=== PATIENT | female | born 1995 | race Hispanic/Latino ===

== ENCOUNTER 2017-10-14 19:04 | Emergency (ER) | payer OTHER ==
[2017-10-14] MEDS ORDERED: methylPREDNISolone Sod Succ/PF 125 MG/2 ML VIAL ONE ×2 (19:47→20:06)
[2017-10-14] MEDS ORDERED: diphenhydrAMINE 50 MG/ML VIAL ONE ×2 (19:47→20:08)
[2017-10-14] MEDS ORDERED: Famotidine 20 MG TAB ONE ×2 (19:47→20:06)
[2017-10-14] MEDS ORDERED: Water For Inject, Bacteriostat 0 ML ONE (19:48)
[2017-10-14] MEDS ORDERED: Water For Inject, Bacteriostat 30 ML ONE (20:07)
== END 2017-10-14 22:15 | disposition home or self-care (01) ==
LOC: ERS 19:04
DX: T78.1XXA Other adverse food reactions, not elsewhere classified, initial encounter (principal)
CPT/HCPCS: 96361; 96374; 96375; J1200; J2930

== ENCOUNTER 2018-12-19 20:04 | Emergency (ER) | payer OTHER | END 2018-12-19 22:08 | disposition home or self-care (01) | LOC: ERS 20:04 | DX: O90.0 Disruption of cesarean delivery wound (principal) | CPT/HCPCS: 99283 ==

== ENCOUNTER 2022-02-26 07:48 | Outpatient (CLI) | payer MEDICAID | END 2022-02-26 07:49 | disposition home or self-care (01) | LOC: ULT 07:48 | PROVIDERS: ATTEND Nurse Practitioner Women's Health | DX: R10.2 Pelvic and perineal pain (principal) | CPT/HCPCS: 76856; 93976 ==

== ENCOUNTER 2022-04-07 07:45 | Outpatient (CLI) | payer MEDICAID ==
[2022-04-07 08:12] LABS: BHCG - Serum Negative (NEGATIVE); Pregs Control Background? CLEAR/WHITE (CLR/WHITE); Pregs Control Bar Appear? YES (CONTROL BAR)
== END 2022-04-07 07:46 | disposition home or self-care (01) ==
LOC: RAD 07:45
PROVIDERS: ATTEND Nurse Practitioner Women's Health
DX: Z32.00 Encounter for pregnancy test, result unknown (principal); N97.9 Female infertility, unspecified
CPT/HCPCS: 36415; 58340; 74740; 84703

== ENCOUNTER 2022-08-06 20:12 | Emergency (ER) | payer MEDICAID, OTHER ==
[2022-08-06] MEDS ORDERED: diphenhydrAMINE 50 MG/ML VIAL ONE (20:36)
[2022-08-06] MEDS ORDERED: Proparacaine 0.5% Opth 15 ML BOT ONE (20:36)
[2022-08-06] MEDS ORDERED: Fluorescein Opthalmic Strip ONE (20:36)
[2022-08-06] MEDS ORDERED: diphenhydrAMINE 25 MG CAP ONE (20:37)
== END 2022-08-06 21:29 | disposition home or self-care (01) ==
LOC: ERS 20:12
DX: H10.9 Unspecified conjunctivitis (principal)
CPT/HCPCS: 99282; J1200